=== PATIENT | female | born 1980 | race Caucasian/White ===

== ENCOUNTER 2019-12-25 00:24 | Observation (INO) ==
[2019-12-25] MEDS ORDERED: ONDANSETRON 4 MG/2 ML VIAL IV STA (00:40)
[2019-12-25] MEDS ORDERED: METOCLOPRAMIDE 10 MG/2 ML VIAL IV STA (00:42)
[2019-12-25] MEDS ORDERED: PANTOPRAZOLE 40 MG VIAL IV STA (00:42)
[2019-12-25] MEDS: DICYCLOMINE 20 MG/2 ML AMP IM SCH ×2 (01:20→07:50)
[2019-12-25 01:34] LABS: Alanine Aminotransferase 17 U/L (13-56); Albumin 3.4 G/DL (3.4-5.0); Alkaline Phosphatase 76 U/L (45-117); Amylase 311 U/L (25-115); Aspartate Amino Transferase 17 U/L (0-37); Bilirubin,Total < 0.39 MG/DL (0.2-1.0); Blood Urea Nitrogen 20 MG/DL (7-18); Calcium 8.4 MG/DL (8.5-10.1); Estimated Glom Filtration Rate 106 ML/MIN; Glucose 89 MG/DL (74-106); Total Protein 6.8 G/DL (6.4-8.3)
[2019-12-25 01:35] LABS: Basophils % 0.3 % (0.0-0.8); Eosinophils # 0.2 10*3/uL (0.0-0.87); Eosinophils % 1.5 % (0.00-10.9); Hematocrit 43.7 VOL% (35.7-47.0); Hemoglobin 14.8 GM/DL (12.0-16.0); Immature Granulocytes % 0.2 %; Immature Granulocytes Absolute 0.02 #; Lymphocytes # 2.7 10*3/uL (1.4-4.0); Mean Corpuscular HGB Conc 33.9 GM/DL (32-36); Mean Corpuscular Volume 97.1 FL (87-102); Mean Platelet Volume 10.3 FL (9.6-12.0); Monocytes % 5.2 % (1.7-12.7); Neutrophils % 70.8 % (38.7-73.9); Platelet Count 170 T/CUMM (130-400); Red Cell Distribution Width 12.1 % (9.3-17.3); White Blood Count 12.3 T/CUMM (4-12)
[2019-12-25 01:43] LABS: Apearance,Urine CLEAR (Clear); Bilirubin,Urine Negative (Negative); Blood, Urine Small mg/dL (Negative); Glucose,Urine (UA) Negative (Negative); Ketones,Urine 5 mg/dL (Negative); Mucus,Urine Occasional /LPF (Occasional); Nitrite,Urine Negative (Negative); Protein,Urine Negative; RBC,Urine 2 /HPF (0-4); Squamous Epithelial Cell,Urine Occasional /HPF (0-10); Urine Color Straw (Yellow); Urine Urobilinogen < 2.0 EU/DL (0.2-1.0); WBC,Urine <1 /HPF (0-6)
[2019-12-25] MEDS ORDERED: SODIUM CHLORIDE 0.9% 1,000 ML IV STA ×2 (02:28→05:39)
[2019-12-25] MEDS ORDERED: ONDANSETRON 4 MG/2 ML VIAL IV PRN ×2 (06:46→11:34)
[2019-12-25] MEDS ORDERED: PROMETHAZINE 25 MG/1 ML VIAL IM PRN (06:46)
[2019-12-25 10:22] LABS: Barbiturates Screen,Urine Negative (Negative); Benzodiazepines Screen,Urine Negative (Negative); Cannabinoid Screen,Urine Negative (Negative); Opiate Screen,Urine Positive (Negative); Phencyclidine Screen,Urine Negative (Negative)
[2019-12-25] MEDS ORDERED: SODIUM CHLORIDE 0.9% 1,000 ML IV SCH (11:34)
[2019-12-25] MEDS ORDERED: MORPHINE 4 MG/1 ML VIAL IV PRN (11:34)
[2019-12-25] MEDS ORDERED: DEXTROSE 50% 25 GM/50 ML VIAL IV PRN (11:34)
[2019-12-25] MEDS ORDERED: GLUCAGON 1 MG VIAL IM PRN (11:34)
[2019-12-25 12:16] LABS: Bilirubin,Total 0.4 MG/DL (0.2-1.0); Calcium 7.9 MG/DL (8.5-10.1); Total Protein 5.9 G/DL (6.4-8.3)
[2019-12-25 12:17] LABS: Osmolality,Calculated 273.7 MOS/KG (273-304); Risk Ratio 3.15
[2019-12-25] MEDS: SODIUM CHLORIDE 0.9% 1,000 ML IV SCH ×3 (12:40→21:18)
[2019-12-25] MEDS: PANTOPRAZOLE 40 MG TABLET PO SCH ×2 (12:40→14:13)
[2019-12-26] MEDS ORDERED: IBUPROFEN 600 MG TABLET PO ONE (01:36)
[2019-12-26] MEDS: SODIUM CHLORIDE 0.9% 1,000 ML IV SCH ×2 (02:02→07:44)
[2019-12-26 05:14] LABS: Basophils % 0.3 % (0.0-0.8); Eosinophils # 0.1 10*3/uL (0.0-0.87); Eosinophils % 2.2 % (0.00-10.9); Hematocrit 36.3 VOL% (35.7-47.0); Hemoglobin 12.1 GM/DL (12.0-16.0); Immature Granulocytes % 0.3 %; Immature Granulocytes Absolute 0.02 #; Lymphocytes # 2.7 10*3/uL (1.4-4.0); Lymphocytes % 41.7 % (21.3-54.2); Mean Corpuscular HGB Conc 33.3 GM/DL (32-36); Mean Corpuscular Volume 97.1 FL (87-102); Mean Platelet Volume 10.6 FL (9.6-12.0); Monocytes % 6.2 % (1.7-12.7); Neutrophils % 49.3 % (38.7-73.9); Platelet Count 113 T/CUMM (130-400); Red Blood Count 3.74 MC/CUMM (3.8-5.5); Red Cell Distribution Width 12.1 % (9.3-17.3); White Blood Count 6.4 T/CUMM (4-12)
[2019-12-26 05:47] LABS: Hypochromasia 1+
[2019-12-26 05:48] LABS: Albumin 2.7 G/DL (3.4-5.0); Bilirubin,Total 1.2 MG/DL (0.2-1.0); Calcium 7.6 MG/DL (8.5-10.1); Osmolality,Calculated 275.4 MOS/KG (273-304); Platelet Estimate Decreased; Total Protein 5.3 G/DL (6.4-8.3)
[2019-12-26] MEDS ORDERED: MORPHINE 4 MG/1 ML VIAL IV PRN (06:26)
[2019-12-26] MEDS: PANTOPRAZOLE 40 MG TABLET PO SCH ×2 (08:36→09:16)
[2019-12-26] MEDS ORDERED: cefOXitin 2,000 MG in SYRINGE 1 EACH IV ONE (14:39)
[2019-12-27 05:23] LABS: Albumin 3.2 G/DL (3.4-5.0); Calcium 8.8 MG/DL (8.5-10.1); Osmolality,Calculated 270.7 MOS/KG (273-304); Total Protein 6.1 G/DL (6.4-8.3)
[2019-12-27] MEDS ORDERED: cefOXitin 2,000 MG in SYRINGE 1 EACH IV ONE (08:00)
[2019-12-27] MEDS ORDERED: TISSUE ADHESIVE 1 EACH APPLICATOR TOP ONE (08:19)
[2019-12-27] MEDS ORDERED: BUPIVACAINE MPF 0.25% 30 ML VIAL ONE (08:21)
[2019-12-27] MEDS: HYDROmorphone 2 MG/1 ML VIAL IV PRN ×2 (10:10→10:45)
[2019-12-27] MEDS ORDERED: LIDOCAINE 2% 5 ML VIAL ONE (10:11)
[2019-12-27] MEDS ORDERED: propofoL 200 MG/20 ML VIAL IV ONE (10:11)
[2019-12-27] MEDS ORDERED: fentaNYL 250 MCG/5 ML VIAL ONE (10:11)
[2019-12-27] MEDS ORDERED: MIDAZOLAM 2 MG/2 ML VIAL ONE (10:11)
[2019-12-27] MEDS ORDERED: SEVOFLURANE 1 UNIT/15 MINUTE INH ONE (10:11)
[2019-12-27] MEDS ORDERED: ETOMIDATE 40 MG/20 ML VIAL IV ONE (10:12)
[2019-12-27] MEDS ORDERED: NEOSTIGMINE 10 MG/10 ML VIAL ONE (10:12)
[2019-12-27] MEDS ORDERED: ROCURONIUM 100 MG/10 ML VIAL IV ONE (10:12)
[2019-12-27] MEDS ORDERED: GLYCOPYRROLATE 0.4 MG/2 ML VIAL ONE (10:12)
[2019-12-27] MEDS ORDERED: ONDANSETRON 4 MG/2 ML VIAL ONE ×2 (10:12→10:15)
[2019-12-27] MEDS ORDERED: DEXAMETHASONE 4 MG/1 ML VIAL ONE (10:12)
[2019-12-27] MEDS ORDERED: ESMOLOL 100 MG/10 ML VIAL IV ONE (10:12)
[2019-12-27] MEDS ORDERED: HYDROmorphone 2 MG/1 ML VIAL ONE (10:15)
[2019-12-27] MEDS ORDERED: ONDANSETRON 4 MG/2 ML VIAL IV PRN (10:51)
[2019-12-27] MEDS: PANTOPRAZOLE 40 MG TABLET PO SCH (13:19)
[2019-12-27 13:23] VITALS: BP 126/73
== END 2019-12-27 15:20 | disposition home or self-care (01) ==
LOC: EDUNIT# → N.EDINP 00:24 → N.ED 00:24 → SUATTDRO 05:47 → N.3E 11:25
PROVIDERS: ADMIT Internal Medicine; ATTEND Internal Medicine
PROC: LAPCHOL (2019-12-27 08:50)